=== PATIENT | male | born 1950 | race Caucasian/White ===

== ENCOUNTER 2017-12-14 10:39 | Emergency (ER) | payer BC ==
--- NOTE | 2017-12-14 11:16 | EDPHY ---
H & P Stated Complaint: non tramautic L knee pain/swelling x 1 week Time Seen by Provider: 12/14/17 11:15 HPI/ROS: HPI: This is a 67-year-old male who presents with Chief Complaint: non traumatic L knee pain/swelling x 1 week Location: Left knee Quality: Pain and swelling Duration: 1 week Signs and Symptoms: No bleeding, no radiation, no numbness, no weakness, no tingling, no incontinence, no decreased range of motion, + swelling, + pain, no fever Timing: Worsening Severity: [id number] Context: Patient reports that he has been remodeling his house over the last 1- 2 weeks and presents with one-week history of left anterior inferior pain and swelling. Denies any radiation, weakness, paresthesias. He has a history of ACL repair. No history of gouty arthropathy. Called his primary care provider who advised him to come to the emergency room for further evaluation. Modifying Factors: None Comment: ROS: A comprehensive 10 system review of systems is otherwise negative aside from elements mentioned in the history of present illness. MEDICAL/SURGICAL/SOCIAL HISTORY: Medical history: NV on aspirin, hyperlipidemia Surgical history: Left ACL arthroscopy Social history: Retired, nonsmoker, denies drug use. CONSTITUTIONAL: Pleasant and cooperative elderly white male who appears younger than stated age, awake and alert, no obvious distress HEENT: Atraumatic and normocephalic. NECK: supple EXTREMITIES: 2/2 pulses, strength 5/5, left KNEE: Prominence and swelling and warmth over the tibial tuberosity; no effusion, no medial and lateral joint line tenderness, full extension to 180, flexion to 120. No pain with varus and valgus exam. No pain with anterior drawer or posterior drawer test. Extensor mechanism intact. DIP/PIP/MCP flexion/extension intact with good light touch sensation. no deformities, no clubbing, no cyanosis or edema. NEUROLOGICAL: no focal neuro deficits. GCS 15. Light touch sensation intact. SKIN: Warm and dry, no erythema. no rash. Good capillary refill. Source: Patient Exam Limitations: No limitations - Personal History Tetanus Vaccine Date: 2009 - Medical/Surgical History Hx Asthma: No Hx Chronic Respiratory Disease: No Hx Diabetes: No Hx Cardiac Disease: Yes Hx Renal Disease: No Hx Cirrhosis: No Hx Alcoholism: No Hx HIV/AIDS: No Hx Splenectomy or Spleen Trauma: No Other PMH: hyperlipidemia. NV 2012 - Social History Smoking Status: Never smoked Constitutional: Initial Vital Signs Temperature (C) 36.7 C 12/14/17 10:42 Heart Rate 67 12/14/17 10:42 Respiratory Rate 16 12/14/17 10:42 Blood Pressure 157/90 H 12/14/17 10:42 O2 Sat (%) 97 12/14/17 10:42 O2 Delivery Mode Room Air Allergies/Adverse Reactions: No Known Allergies Allergy (Unverified 12/14/17 10:41) Home Medications: Medication Instructions Recorded Aspirin EC 81 mg (*) 12/14/17 Plavix 12/14/17 Ramipril 12/14/17 Rosuvastatin Calcium 12/14/17 Medical Decision Making - Diagnostics Imaging Results: Imaging Impressions Knee X-Ray 12/14/17 11:06 Impression: No acute osseous findings. Procedures: Procedure: Splint placement. A left knee immobilizer was applied by the Emergency Room device repair technician. After application of the splint I returned and re-examined the patient. The splint was adequately immobilizing the joint and distal to the splint the patient's circulation and sensation was intact. ED Course/Re-evaluation: Left knee x-ray my read shows osteophytes and mild degenerative changes with soft tissue swelling over the tibial tuberosity. I suspect that patient has a patellar tendinitis. Placed in knee immobilizer, pain control, orthopedic follow-up No signs of neurovascular compromise/tenting of skin/compartment syndrome/ extremities and joints examined above and below area of concern and are neurovascularly intact. This patient was seen under the supervision of my secondary supervising physician. I evaluated care for this patient independently. Discussed this patient with Dr. Agustin. Differential Diagnosis: Knee injury while [] including but not limited to fracture, ACL injury, contusion, muscular strain, and meniscus injury. Departure - Departure Disposition: Home, Routine, Self-Care Clinical Impression: Patellar tendonitis of left knee Condition: Good Instructions: Patellar Tendinitis (ED), Knee Immobilizer (ED) Additional Instructions: Wear the knee immobilizer while out of bed until pain free. Take Tylenol 650 mg every 4 hours and/or Ibuprofen 600 mg every 8 hours with food as needed for pain. Apply ice for 30 minutes at a time; 2-3 times per day for the next 1-2 days. Follow up with Orthopedics in 7-10 days symptoms persist at which time they will evaluate and recommend with you if conservative management versus further imaging is indicated. Return to the ER immediately if you experience new or worsening pain, discoloration, numbness, tingling, or any other symptoms that concern you. Referrals: Joshua Mccallum MD [Primary Care Provider] - As per Instructions Norris Davis MD [Medical Doctor] - As per Instructions
[2017-12-14 13:04] VITALS: BP 133/91
== END 2017-12-14 13:02 | disposition home or self-care (01) ==
DX: M76.52 Patellar tendinitis, left knee (principal); E78.5 Hyperlipidemia, unspecified
CPT/HCPCS: L1830